=== PATIENT | male | born 1970 | race Caucasian/White ===

== ENCOUNTER 2019-09-18 15:18 | Emergency (ER) | payer OTHER ==
[2019-09-18] MEDS ORDERED: Doxycycline 100 MG Cap PO ONE (16:03)
[2019-09-18] MEDS ORDERED: Ketorolac 60 MG/2 ML SDV IM ONE (16:04)
--- NOTE | 2019-09-18 16:10 | EDM.PDOC ---
ED HPI GENERAL MEDICAL PROBLEM - General Chief Complaint: Skin Complaint Stated Complaint: L ARMPIT SKIN COMPLAINT Time Seen by Provider: 09/18/19 15:26 Source of Information: Reports: Patient History Limitations: Reports: No Limitations - History of Present Illness INITIAL COMMENTS - FREE TEXT/NARRATIVE: Patient is a 49-year-old male who presents with complaints of a painful, inflamed lump in his left armpit. States he first noticed this 2 to 3 days ago. Pain radiates into his chest wall muscles and through to his back. He denies any fever, chills, nausea, or vomiting. Does not has no known history of MRSA. Left Axillary Pain Score (Numeric/FACES): 5 - Related Data Allergies Allergy/AdvReac Type Severity Reaction Status Date / Time No Known Allergies Allergy Verified 09/18/19 15:25 Home Meds: Home Meds Doxycycline [Vibramycin] 100 mg PO BID #19 tab 09/18/19 [Rx] Past Medical History - Past Health History Medical/Surgical History: Denies Medical/Surgical History Social & Family History - Recreational Drug Use Recreational Drug Use: No ED ROS GENERAL - Review of Systems Review Of Systems: Comprehensive ROS is negative, except as noted in HPI. ED EXAM, SKIN/RASH Exam: See Below Exam Limited By: No Limitations General Appearance: Alert, WD/WN, No Apparent Distress Respiratory/Chest: No Respiratory Distress, Lungs Clear, Normal Breath Sounds, No Accessory Muscle Use, Chest Non-Tender Cardiovascular: Normal Peripheral Pulses, Regular Rate, Rhythm, No Edema, No Gallop, No JVD, No Murmur, No Rub Skin: Warm, Dry, Intact, Other (Approximately 3 cm firm, nodule in the left armpit. Skin is slightly erythematous. Area is tender to palpation) Course - Vital Signs Last Recorded V/S: Last Vital Signs Temp 97.0 F 09/18/19 15:25 Pulse 86 09/18/19 15:25 Resp 15 09/18/19 15:25 BP 144/100 H 09/18/19 15:25 Pulse Ox 100 09/18/19 15:25 - Orders/Labs/Meds Meds: Medications Discontinued Medications Generic Name Dose Route Start Last Admin Trade Name Freq PRN Reason Stop Dose Admin Doxycycline Hyclate 100 mg 09/18/19 16:03 09/18/19 16:10 Vibramycin PO 09/18/19 16:04 100 mg ONETIME ONE Administration Ketorolac Tromethamine 60 mg 09/18/19 16:04 09/18/19 16:09 Toradol IM 09/18/19 16:05 60 mg ONETIME ONE Administration - Re-Assessments/Exams Free Text/Narrative Re-Assessment/Exam: 09/18/19 16:08 Bedside ultrasound was performed there were no signs of fluid beneath the surface of the skin. There is likely a cellulitis of the skin. We will start him on doxycycline 100 mg twice daily for 10 days and give a injection of Toradol at this time. He was educated that if the symptoms do not improve over the next week or so or if it becomes more spongy in nature, he should be really reevaluated as an abscess may form and may need to be drained. Discharge instructions as documented. Departure - Departure Time of Disposition: 16:09 Disposition: Home, Self-Care 01 Condition: Fair Clinical Impression: Cellulitis Qualifiers: Site of cellulitis: extremity Site of cellulitis of extremity: axilla Laterality: left Qualified Code(s): L03.112 - Cellulitis of left axilla - Discharge Information *PRESCRIPTION DRUG MONITORING PROGRAM REVIEWED*: No *COPY OF PRESCRIPTION DRUG MONITORING REPORT IN PATIENT SHRUTI: No Prescriptions: Doxycycline [Vibramycin] 100 mg PO BID #19 tab Instructions: Cellulitis, Adult Referrals: PCP,Not In Area [Primary Care Provider] - Forms: ED Department Discharge Additional Instructions: You were seen in the emergency department today for a painful, swollen, nodule in your left armpit. This appears to be an area of infection within the skin noted cellulitis. You have been started on doxycycline. Take this medication as prescribed. If you not see improvement in the symptoms over the next few days, I do recommend that you follow-up and have it reevaluated. You may use [id number] ibuprofen 600 to 800 mg every 6 hours with food as needed for pain and inflammation. You did receive an injection of Toradol while in the ER. Do not take ibuprofen until approximately 10:00 tonight as this is similar to ibuprofen. Return to the ER as needed. Sepsis Event Note - Evaluation Sepsis Screening Result: No Definite Risk - Focused Exam Vital Signs: Vital Signs Temp Pulse Resp BP Pulse Ox 09/18/19 15:25 97.0 F 86 15 144/100 H 100 Date Exam was Performed: 09/18/19 Time Exam was Performed: 16:35
== END 2019-09-18 16:23 | disposition home or self-care (01) ==
LOC: JD.ED 15:18
DX: L03.112 Cellulitis of left axilla (principal)
CPT/HCPCS: 96374; 99282; A9270; J1885; 99283